=== PATIENT | male | born 1935 | race Caucasian/White ===

== ENCOUNTER → 2023-07-16 10:35 | Outpatient (CLI) | payer OTHER, SELFPAY ==
[2023-07-16 19:16] LABS: Add Manual Diff / Slide Review NO; Basophils Absolute Auto 0 /uL (0-100); Basophils Percent Auto 0.4 % (0-2); Eosinophils Absolute Auto 200 /uL (0-450); Eosinophils Percent Auto 2.1 % (2-4); Hematocrit 40.8 % (41-53); Hemoglobin 13.8 g/dL (13.5-17.5); Lymphocytes Absolute Auto 1700 /uL (1100-4500); Lymphocytes Percent Auto 21.4 % (25-40); Mean Corpuscular HGB Conc 33.9 % (30-36); Mean Corpuscular Hemoglobin 31.1 PG (26-34); Mean Corpuscular Volume 91.7 fL (80-100); Monocytes Absolute Auto 900 /uL (0-900); Monocytes Percent Auto 11.1 % (3-14); Neutrophils Absolute Auto 5100 /uL (1500-7000); Platelet Count 197 X10^3/uL (150-400); Red Blood Cell Count 4.45 X10^6/uL (4.5-5.9); White Blood Cell Count 7.8 X10^3/uL (4.5-11.0)
[2023-07-16 19:25] LABS: Alanine Aminotransferase 19 IU/L (<50); Albumin 4.1 g/dL (3.5-5.0); Albumin Globulin Ratio 1.4 (1.0-2.8); Alkaline Phosphatase 74 U/L (38-126); Aspartate Aminotransferase 26 IU/L (17-59); BUN Creatinine Ratio 17.2 (6-22); Bilirubin Total 0.7 mg/dL (0.2-1.3); Blood Urea Nitrogen 15 mg/dL (9-20); Calcium 9.2 mg/dL (8.4-10.2); Carbon Dioxide 28 mmol/L (22-32); Chloride 102 mmol/L (98-107); Cholesterol 128 mg/dL (140-199); Estimated Glomerular Filt Rate > 60 mL/min (>60); Globulin 2.9 g/dL (1.7-4.1); Glucose 94 mg/dL (80-110); HDL Cholesterol 58 mg/dL (40-60); HEMOLYSIS < 15 (0-50); LDL Cholesterol Calculated 56 mg/dL (<100); Potassium 4.6 mmol/L (3.4-5.1); Sodium 137 mmol/L (137-145); Triglycerides 69 mg/dL (35-150)
[2023-07-16 19:54] LABS: Prostate Specific Antigen 2.44 ng/mL (0.10-4.00); TSH w/ Reflex to FT4 1.35 uIU/mL (0.47-4.68)
== END ==
PROVIDERS: PCP Physician Assistant Medical; Visit Provider Physician Assistant Medical
DX: I10 Essential (primary) hypertension (principal); E78.00 Pure hypercholesterolemia, unspecified
CPT/HCPCS: 80053; 80061; 84153; 84443; 85025

== ENCOUNTER → 2023-10-21 09:19 | Outpatient (CLI) | payer OTHER, SELFPAY ==
[2023-10-21 19:24] LABS: Add Manual Diff / Slide Review NO; Basophils Absolute Auto 0 /uL (0-100); Basophils Percent Auto 0.5 % (0-2); Eosinophils Absolute Auto 300 /uL (0-450); Eosinophils Percent Auto 2.9 % (2-4); Hematocrit 39.9 % (41-53); Hemoglobin 13.5 g/dL (13.5-17.5); Lymphocytes Absolute Auto 1700 /uL (1100-4500); Lymphocytes Percent Auto 16.8 % (25-40); Mean Corpuscular Hemoglobin 31.1 PG (26-34); Mean Corpuscular Volume 91.5 fL (80-100); Monocytes Absolute Auto 1100 /uL (0-900); Monocytes Percent Auto 10.4 % (3-14); Neutrophils Absolute Auto 7000 /uL (1500-7000); Neutrophils Percent Auto 69.4 % (50-75); Platelet Count 215 X10^3/uL (150-400); Red Blood Cell Count 4.36 X10^6/uL (4.5-5.9); Red Cell Distribution Width 13.4 % (11.6-14.8); White Blood Cell Count 10.1 X10^3/uL (4.5-11.0)
== END ==
PROVIDERS: PCP Physician Assistant Medical; Visit Provider Physician Assistant Medical
DX: D64.9 Anemia, unspecified (principal)
CPT/HCPCS: 85025

== ENCOUNTER → 2023-10-30 14:33 | Outpatient (CLI) | payer OTHER, SELFPAY ==
[2023-11-02 18:07] LABS: Fecal Immunochemical Test Negative (Negative)
== END ==
PROVIDERS: PCP Physician Assistant Medical; Visit Provider Family Medicine
DX: D64.9 Anemia, unspecified (principal)
CPT/HCPCS: 82274

== ENCOUNTER → 2023-11-04 10:51 | Outpatient (CLI) | payer OTHER, SELFPAY ==
[2023-11-04 19:22] LABS: Add Manual Diff / Slide Review NO; Basophils Absolute Auto 0 /uL (0-100); Basophils Percent Auto 0.2 % (0-2); Eosinophils Absolute Auto 200 /uL (0-450); Eosinophils Percent Auto 2.8 % (2-4); Hemoglobin 13.7 g/dL (13.5-17.5); Lymphocytes Absolute Auto 1700 /uL (1100-4500); Lymphocytes Percent Auto 22.3 % (25-40); Mean Corpuscular HGB Conc 34.3 % (30-36); Mean Corpuscular Hemoglobin 31.2 PG (26-34); Mean Corpuscular Volume 90.9 fL (80-100); Monocytes Absolute Auto 900 /uL (0-900); Monocytes Percent Auto 11.6 % (3-14); Neutrophils Absolute Auto 4900 /uL (1500-7000); Neutrophils Percent Auto 63.1 % (50-75); Platelet Count 228 X10^3/uL (150-400); Red Blood Cell Count 4.39 X10^6/uL (4.5-5.9); Red Cell Distribution Width 13.7 % (11.6-14.8); White Blood Cell Count 7.8 X10^3/uL (4.5-11.0)
[2023-11-04 19:30] LABS: HEMOLYSIS < 15 (0-50); Iron 77 ug/dL (49-181)
[2023-11-04 19:45] LABS: Percent Iron Saturation 24 % (20-50); Total Iron Binding Capacity 318 ug/dL (261-462); Transferrin 253 mg/dL (206-381)
[2023-11-04 20:44] LABS: Folate 15.2 ng/mL (2.76-20.0); Vitamin B12 257 pg/mL (239-931)
== END ==
PROVIDERS: PCP Physician Assistant Medical; Visit Provider Physician Assistant Medical
DX: D64.9 Anemia, unspecified (principal)
CPT/HCPCS: 82607; 82746; 83540; 83550; 85025

== ENCOUNTER → 2025-01-10 09:21 | Outpatient (CLI) | payer OTHER, SELFPAY ==
[2025-01-10 19:31] LABS: Add Manual Diff / Slide Review NO; Basophils Absolute Auto 0 /uL (0-100); Basophils Percent Auto 0.6 % (0-2); Eosinophils Absolute Auto 200 /uL (0-450); Eosinophils Percent Auto 2.7 % (2-4); Hematocrit 40.6 % (41-53); Hemoglobin 13.7 g/dL (13.5-17.5); Lymphocytes Absolute Auto 1900 /uL (1100-4500); Lymphocytes Percent Auto 25.4 % (25-40); Mean Corpuscular HGB Conc 33.7 % (30-36); Mean Corpuscular Hemoglobin 30.6 PG (26-34); Mean Corpuscular Volume 90.6 fL (80-100); Monocytes Absolute Auto 900 /uL (0-900); Monocytes Percent Auto 12.1 % (3-14); Neutrophils Absolute Auto 4400 /uL (1500-7000); Neutrophils Percent Auto 59.2 % (50-75); Platelet Count 219 X10^3/uL (150-400); Red Blood Cell Count 4.47 X10^6/uL (4.5-5.9); Red Cell Distribution Width 13.9 % (11.6-14.8); White Blood Cell Count 7.5 X10^3/uL (4.5-11.0)
[2025-01-10 19:37] LABS: Alanine Aminotransferase 19 IU/L (<50); Albumin 4.1 g/dL (3.5-5.0); Albumin Globulin Ratio 1.4 (1.0-2.8); Alkaline Phosphatase 76 U/L (38-126); Aspartate Aminotransferase 29 IU/L (17-59); BUN Creatinine Ratio 16.7 (6-22); Bilirubin Total 0.5 mg/dL (0.2-1.3); Blood Urea Nitrogen 16 mg/dL (9-20); Calcium 9.2 mg/dL (8.4-10.2); Carbon Dioxide 29 mmol/L (22-32); Chloride 100 mmol/L (98-107); Cholesterol 172 mg/dL (140-199); Estimated Glomerular Filt Rate > 60 mL/min (>60); Globulin 2.9 g/dL (1.7-4.1); Glucose 102 mg/dL (80-110); HDL Cholesterol 55 mg/dL (40-60); HEMOLYSIS < 15 (0-50); LDL Cholesterol Calculated 97 mg/dL (<100); Potassium 4.5 mmol/L (3.4-5.1); Sodium 136 mmol/L (137-145); Triglycerides 101 mg/dL (35-150)
[2025-01-10 20:07] LABS: TSH w/ Reflex to FT4 1.24 uIU/mL (0.47-4.68)
== END ==
PROVIDERS: Family Medicine; PCP Physician Assistant Medical; Visit Provider Physician Assistant Medical
DX: M25.541 Pain in joints of right hand (principal); I25.2 Old myocardial infarction; I10 Essential (primary) hypertension; F41.9 Anxiety disorder, unspecified; E78.00 Pure hypercholesterolemia, unspecified; D64.9 Anemia, unspecified
CPT/HCPCS: 80053; 80061; 84443; 85025